=== PATIENT | male | born 1960 | race Caucasian/White ===

== ENCOUNTER 2021-03-10 14:43 | Inpatient (IN) | payer OTHER ==
[~2021-03-10] VITALS: Ht 172.7 cm; Wt 108.6 kg
[~2021-03-10 14:43] MED LIST: ACET325 PO; CIPR500 PO; Flomax0.4 MG PO; HYDACE5325 PO; HYDR1TAB94 PO; KETO30I IM; Percocet 5-3251 EACH PO; Pyridium200 MG PO; RANI150 PO; SULTRIDS PO
[2021-03-10 15:10] LABS: BASOPHILS ABSOLUTE AUTO 0.06 K/mm3 (0.00-0.23); BASOPHILS PERCENT AUTO 1 % (0-2); EOSINOPHILS ABSOLUTE AUTO 0.25 K/mm3 (0.00-0.68); EOSINOPHILS PERCENT AUTO 4 % (0-6); Hematocrit 47.7 % (37.0-53.0); Hemoglobin 16.4 g/dL (13.5-17.5); IMMATURE GRAN ABSOLUTE AUTO 0.04 K/mm3 (0.00-0.10); IMMATURE GRAN PERCENT AUTO 1 % (0-1); LYMPHOCYTES ABSOLUTE AUTO 1.48 K/mm3 (0.84-5.20); LYMPHOCYTES PERCENT AUTO 21 % (21-46); MONOCYTES ABSOLUTE AUTO 0.51 K/mm3 (0.16-1.47); MONOCYTES PERCENT AUTO 7 % (4-13); Mean Corpuscular HGB 31.7 pg (26.0-34.0); Mean Corpuscular HGB Conc 34.4 g/dL (31.5-36.5); Mean Corpuscular Volume 92 fL (80-100); Mean Platelet Volume 10.1 fL (9.1-12.4); NEUTROPHILS ABSOLUTE AUTO 4.79 K/mm3 (1.96-9.15); NEUTROPHILS PERCENT AUTO 67 % (41-73); Platelet Count 223 K/mm3 (150-400); RDW Coefficient Variation 12.2 % (11.7-14.2); RDW Standard Deviation 42.1 fL (35.1-46.3); Red Blood Cell Count 5.17 M/mm3 (4.30-5.90); White Blood Cell Count 7.13 K/mm3 (4.00-11.30)
[2021-03-10 15:41] LABS: Alanine Aminotransfer (ALT/SGP 59 U/L (12-78); Albumin, Blood 4.3 g/dL (3.4-5.0); Alk Phos 68 U/L (50-136); Anion Gap 6 mmol/L (6-16); Aspartate Aminotrans (AST/SGOT 44 U/L (12-37); Bilirubin, Total 0.8 mg/dL (0.1-1.0); Blood Urea Nitrogen 14 mg/dL (8-24); Bun/Creatinine Ratio 12.3 (12.0-20.0); CO2, Blood 26 mmol/L (21-32); Calcium, Blood 9.2 mg/dL (8.5-10.1); Chloride, Blood 104 mmol/L (98-108); Creatinine, Blood 1.14 mg/dL (0.60-1.20); Globulin, Blood 4.1 g/dL (2.2-4.0); Glomerular Filtration Rate >60 (60-); Glucose, Blood 132 mg/dL (70-99); Potassium, Blood 3.5 mmol/L (3.5-5.5); Sodium, Blood 136 mmol/L (136-145); Total Protein, Blood 8.4 g/dL (6.4-8.2)
[2021-03-10 15:43] LABS: Troponin I 0.775 ng/mL (0.000-0.040)
[2021-03-10] MEDS ORDERED: FLOMAX0.4 MG PO (16:18)
[2021-03-10 16:56] LABS: CHOL/HDL RATIO 4.1; Cholesterol 172 mg/dL (50-200); HDL Cholesterol 42 mg/dL (>39); LDL/HDL RATIO 2.1; Low Density Lipoprotein Chol 90 mg/dL (0-110); Triglycerides 202 mg/dL (30-160); Very Low Density Lipoprot Chol 40 mg/dL (6-32)
[2021-03-10] MEDS ORDERED: VITAMIN D31000 UNI1 PO (17:35)
--- NOTE | 2021-03-10 17:41 | NUR ---
Pt arrived to [facility]
[2021-03-10 17:44] LABS: Influenza A, PCR NEGATIVE (NEGATIVE); Influenza B, PCR NEGATIVE (NEGATIVE); Resp Syncytial Virus, PCR NEGATIVE (NEGATIVE); SARS-Cov-2 (COVID-19) PCR, MMC NEGATIVE (NEGATIVE)
[2021-03-10 18:00] LABS: Prothrombin Time Results 10.8 Sec (9.7-11.5)
--- NOTE | 2021-03-10 18:42 | NUR ---
PT ARRIVED TO PCU 3 VIA GURNEY FROM ED. PT IS A/OX3, PLEASANT AND COOPERATIVE WITH CARE, FOLLOWS COMMANDS WELL, STATES HIS CHEST PRESSURE IS DOWN TO A 1/10, LUNGS ARE CLEAR T/O, RESP EVEN AND UNLABORED, NO COUGH NOTED, HRR, TELE IN PLACE RUNNING SB TO SR, SEE STRIP, NO EDEMA NOTED, PPP+1, CAP REFILL <3SEC, VS STABLE, AFEBRILE, IV SITE TO LAC, NEW IV PLACED TO RFA WITH MULTIPLE ATTEMPTS, BTX4, ABD ROUND SEMIFIRM, VOIDS WITHOUT DIFF, SKIN C/W/D, MAEW, CELINE, ORIENTED TO CALL SYSTEM, ROOM LAYOUT, CALL LIGHT IN REACH.
--- NOTE | 2021-03-11 04:37 | NUR ---
SHIFT SUMMARY PT WAS ALERT, ORIENTED, AND COOPERATIVE WITH CARE. INDEPENDENT IN THE ROOM, SUPERVISION WHEN UP FOR LINE MANAGEMENT. PT REPORTED NO CHEST PAIN BUT CHEST TIGHTNESS T/O THE NIGHT THAT WAS UNCHANGED. NO CHEST PAIN WITH AMBULATION TO RESTROOM. TROPONIN ELEVATED TO 11.0. NO RHYTHM CHANGES ON TELE. HR AVG 100'S T/O THE NIGHT. BP 140-130'S, NO PRN ANTIHYPERTENSIVES NEEDED. HEPARIN OFF AT 0500. PT NPO SINCE 2400. PT IS ANXIOUS ABOUT ANGIO TODAY, EDUCATED PT ON EXPECTATIONS. PT HAD AN UNEVENTFUL NIGHT.
[2021-03-11 08:50] LABS: BASOPHILS ABSOLUTE AUTO 0.08 K/mm3 (0.00-0.23); BASOPHILS PERCENT AUTO 1 % (0-2); EOSINOPHILS ABSOLUTE AUTO 0.25 K/mm3 (0.00-0.68); EOSINOPHILS PERCENT AUTO 3 % (0-6); Hematocrit 42.3 % (37.0-53.0); Hemoglobin 14.5 g/dL (13.5-17.5); IMMATURE GRAN ABSOLUTE AUTO 0.03 K/mm3 (0.00-0.10); IMMATURE GRAN PERCENT AUTO 0 % (0-1); LYMPHOCYTES ABSOLUTE AUTO 1.53 K/mm3 (0.84-5.20); LYMPHOCYTES PERCENT AUTO 15 % (21-46); MONOCYTES ABSOLUTE AUTO 0.91 K/mm3 (0.16-1.47); MONOCYTES PERCENT AUTO 9 % (4-13); Mean Corpuscular HGB 31.9 pg (26.0-34.0); Mean Corpuscular HGB Conc 34.3 g/dL (31.5-36.5); Mean Corpuscular Volume 93 fL (80-100); Mean Platelet Volume 10.2 fL (9.1-12.4); NEUTROPHILS ABSOLUTE AUTO 7.22 K/mm3 (1.96-9.15); NEUTROPHILS PERCENT AUTO 72 % (41-73); Platelet Count 188 K/mm3 (150-400); RDW Coefficient Variation 12.3 % (11.7-14.2); RDW Standard Deviation 42.4 fL (35.1-46.3); Red Blood Cell Count 4.54 M/mm3 (4.30-5.90); White Blood Cell Count 10.02 K/mm3 (4.00-11.30)
[2021-03-11 09:14] LABS: Anion Gap 5 mmol/L (6-16); Blood Urea Nitrogen 12 mg/dL (8-24); CO2, Blood 24 mmol/L (21-32); Chloride, Blood 107 mmol/L (98-108); Glomerular Filtration Rate >60 (60-); Glucose, Blood 119 mg/dL (70-99); Potassium, Blood 3.9 mmol/L (3.5-5.5); Sodium, Blood 136 mmol/L (136-145)
--- NOTE | 2021-03-11 11:55 | NUR ---
ASSUMED CARE OF PT AT THIS TIME FOR FEMORAL/TR BAND RECOVERY.
--- NOTE | 2021-03-11 12:03 | NUR ---
PT ARRIVED BACK TO ROOM FROM [facility], REPORT WAS OBTAINED, HE HAS TWO ACCESS SITES, TR BAND IS CLEAR, FEMSTOP TO RIGHT GROIN SITE IS CLEAR AT THIS TIME. V.S. STABLE, PT AWAKE, INSTRUCTING HIM ON RECOVERY AND LAYING FLAT. CALL LIGHT IN REACH. WILL CLOSELY MONITOR.
--- NOTE | 2021-03-11 12:44 | NUR ---
FEMOSTOP PRESSURE REDUCED TO 80MMHG PER DR'S ORDERS. NO BLEEDING OR HEMATOMA NOTED. PT REQUIRES FREQUENT REMINDERS TO STAY FLAT. TR BAND IN PLACE, NO BLEEDING OR HEMATOMA AT THAT SITE WELL.
--- NOTE | 2021-03-11 13:00 | NUR ---
PRESSURE RELEASED ON THE FEMOSTOP TO 60MMHG PER MD ORDERS. NO BLEEDING OR HEMATOMA NOTED. R TR BAND REMAINS IN PLACE, WNL.
--- NOTE | 2021-03-11 13:30 | NUR ---
PRESSURE RELEASED FROM FEMOSTOP TO 40MMHG PER MD ORDERS. NO BLEEDING OR HEMATOMA NOTED, R PEDAL PULSE IS 2+, CAP REFILL LESS THAN 3 SEC. PT STILL NEEDING FREQUENT REMINDERS TO LAY FLAT.
--- NOTE | 2021-03-11 14:00 | NUR ---
2MLS REMOVED FROM R TR BAND, NO BLEEDING NOTED. CAP REFILL LESS THAN 3 SECONDS. PT IS AWARE OF WRIST SITE PRECAUTIONS.
--- NOTE | 2021-03-11 14:15 | NUR ---
2MLS OF AIR REMOVED FROM R TR BAND. NO BLEEDING NOTED. CAP REFILL REMAINS LESS THAN 3 SECONDS.
--- NOTE | 2021-03-11 14:40 | NUR ---
2MLS OF AIR REMOVED FROM R TR BAND. NO BLEEDING NOTED. CAP REFILL REMAINS LESS THAN 3 SECONDS. PT IS AWARE OF R WRIST PRECAUTIONS. ARMBOARD HAS REMAINED IN PLACE SINCE PT ARRIVED FROM THE HEART CENTER.
--- NOTE | 2021-03-11 15:30 | NUR ---
FEMOSTOP REMOVED, NO BLEEDING OR HEMATOMA TO R GROIN SITE. PEDAL PULSES PALP 2+, CAP REFILL LESS THAN 3 SEC. OLD BLOOD CLEANED OFF SITE/AREA AND NEW TEGADERM APPLIED. TR BAND COMPLETELY DEFLATED WITH BAND LEFT IN PLACE FOR ANOTHER HOUR. NO BLEEDING OR HEMATOMA NOTED. PT TOLERATED WELL WITH REMINDERS TO COMPLY WITH FLAT TIME UNTIL 1800 TODAY. PT REPORTS NO CHEST PAIN. CALL LIGHT IN REACH AND FAMILY AT BEDSIDE.
--- NOTE | 2021-03-11 15:51 | NUR ---
PATIENT CARE HANDED OVER TO RAZA RN AT THIS TIME. GROIN SITE AND TR BAND REVIEWED BY BOTH RNs. NO QUESTIONS OR CONCERNS AT THIS TIME.
--- NOTE | 2021-03-11 18:23 | NUR ---
Shift Summary A/Ox4, pleasant and cooperative with care. Courtney assumed care briefly for femoral cath and TR band recovery. Post-op vitals continue. R groin site appears free of hematoma and bleeding post fem cath removal, perfusion good, warm pink toes, pedal pulses palpable, covered with transparent dressing and gauze. R radial site WNL, dressed with bandage. Required lots of reminders to lay flat, uncross legs, and keep still during recovery. Denies chest pain, tightness, shortness of breath. Post-op vitals have been stable so far. TR band off at this time and immobilizer placed. Had dinner.
--- NOTE | 2021-03-12 03:30 | NUR ---
SUMMARY PT HAD NO NOTED ISSUES. ACCESS SITES ARE C/D/I, NO BLEEDING NOTED. PT DENIES CX PAIN OR SOB. PT HAS BEEN RESTING COMFORTABLY T/O SHIFT. PT CURRENTLY SLEEPING IN NO DISTRESS. CALL LIGHT IN REACH.
[2021-03-12 04:06] LABS: BASOPHILS ABSOLUTE AUTO 0.04 K/mm3 (0.00-0.23); BASOPHILS PERCENT AUTO 1 % (0-2); EOSINOPHILS ABSOLUTE AUTO 0.22 K/mm3 (0.00-0.68); EOSINOPHILS PERCENT AUTO 3 % (0-6); IMMATURE GRAN ABSOLUTE AUTO 0.01 K/mm3 (0.00-0.10); IMMATURE GRAN PERCENT AUTO 0 % (0-1); LYMPHOCYTES ABSOLUTE AUTO 1.74 K/mm3 (0.84-5.20); LYMPHOCYTES PERCENT AUTO 23 % (21-46); MONOCYTES ABSOLUTE AUTO 0.87 K/mm3 (0.16-1.47); MONOCYTES PERCENT AUTO 12 % (4-13); Mean Corpuscular HGB 31.8 pg (26.0-34.0); Mean Corpuscular HGB Conc 34.2 g/dL (31.5-36.5); Mean Corpuscular Volume 93 fL (80-100); Mean Platelet Volume 10.6 fL (9.1-12.4); NEUTROPHILS ABSOLUTE AUTO 4.71 K/mm3 (1.96-9.15); NEUTROPHILS PERCENT AUTO 62 % (41-73); Platelet Count 180 K/mm3 (150-400); RDW Coefficient Variation 12.4 % (11.7-14.2); RDW Standard Deviation 42.7 fL (35.1-46.3); Red Blood Cell Count 4.09 M/mm3 (4.30-5.90); White Blood Cell Count 7.59 K/mm3 (4.00-11.30)
[2021-03-12 04:24] LABS: Anion Gap 4 mmol/L (6-16); Blood Urea Nitrogen 10 mg/dL (8-24); Bun/Creatinine Ratio 10.1 (12.0-20.0); CO2, Blood 25 mmol/L (21-32); Calcium, Blood 8.7 mg/dL (8.5-10.1); Chloride, Blood 107 mmol/L (98-108); Glomerular Filtration Rate >60 (60-); Glucose, Blood 109 mg/dL (70-99); Phosphorus, Blood 2.9 mg/dL (2.5-4.9); Potassium, Blood 3.6 mmol/L (3.5-5.5); Sodium, Blood 136 mmol/L (136-145)
--- NOTE | 2021-03-12 06:12 | NUR ---
0605 TELE REPORTED PT HAD SUSTAINED V-TACH 130-140. PT ASSESSED. PT HAD RATE OF 65 PER AUSCULATION AND RADIAL PULSE. PT DENIES ANY CX PAIN/ PRESSURE OR SOB.
--- NOTE | 2021-03-12 13:27 | NUR ---
DR MENDOZA CAME TO SEE THE PT- PLAN IS FOR THE PT TO GO TO THE SENIOR CARE MANAGER TOMORROW.
--- NOTE | 2021-03-12 18:34 | NUR ---
SHIFT SUMMARY- PT ALERT AND ORIENTED, WOULD BE INDEPENDENT IN THE ROOM BUT FOR THE LINES AND TUBES. PT HAS A HEPARIN DRIP RUNNING AT THIS TIME WELL NS AT 150ML/HR. PLAN IS FOR PT TO BE NPO AT MIDNIGHT FOR A TRIP TO THE QUANTOMETER OPERATOR. PT SITTING UP IN BED TALKING ON THE PHONE NO S&S OF DISTRESS NOTED T/O THE DAY. BP WAS A LITTLE LOW ONCE TODAY BUT CAME UP ON EVENING VITALS. PT DENIES ANY SYMPTOMS.
[2021-03-13 04:18] LABS: BASOPHILS ABSOLUTE AUTO 0.04 K/mm3 (0.00-0.23); BASOPHILS PERCENT AUTO 1 % (0-2); EOSINOPHILS ABSOLUTE AUTO 0.32 K/mm3 (0.00-0.68); EOSINOPHILS PERCENT AUTO 5 % (0-6); Hematocrit 36.7 % (37.0-53.0); Hemoglobin 12.6 g/dL (13.5-17.5); IMMATURE GRAN ABSOLUTE AUTO 0.01 K/mm3 (0.00-0.10); IMMATURE GRAN PERCENT AUTO 0 % (0-1); LYMPHOCYTES ABSOLUTE AUTO 1.65 K/mm3 (0.84-5.20); LYMPHOCYTES PERCENT AUTO 27 % (21-46); MONOCYTES ABSOLUTE AUTO 0.65 K/mm3 (0.16-1.47); MONOCYTES PERCENT AUTO 11 % (4-13); Mean Corpuscular HGB 32.1 pg (26.0-34.0); Mean Corpuscular HGB Conc 34.3 g/dL (31.5-36.5); Mean Corpuscular Volume 94 fL (80-100); Mean Platelet Volume 10.9 fL (9.1-12.4); NEUTROPHILS ABSOLUTE AUTO 3.44 K/mm3 (1.96-9.15); NEUTROPHILS PERCENT AUTO 56 % (41-73); Platelet Count 169 K/mm3 (150-400); RDW Coefficient Variation 12.2 % (11.7-14.2); RDW Standard Deviation 42.5 fL (35.1-46.3); Red Blood Cell Count 3.92 M/mm3 (4.30-5.90); White Blood Cell Count 6.11 K/mm3 (4.00-11.30)
[2021-03-13 04:55] LABS: Alanine Aminotransfer (ALT/SGP 31 U/L (12-78); Albumin, Blood 3.3 g/dL (3.4-5.0); Alk Phos 45 U/L (50-136); Anion Gap 3 mmol/L (6-16); Aspartate Aminotrans (AST/SGOT 29 U/L (12-37); Bilirubin, Total 0.6 mg/dL (0.1-1.0); Blood Urea Nitrogen 11 mg/dL (8-24); Bun/Creatinine Ratio 10.6 (12.0-20.0); CO2, Blood 26 mmol/L (21-32); Calcium, Blood 8.7 mg/dL (8.5-10.1); Chloride, Blood 108 mmol/L (98-108); Creatinine, Blood 1.04 mg/dL (0.60-1.20); Globulin, Blood 3.3 g/dL (2.2-4.0); Glomerular Filtration Rate >60 (60-); Glucose, Blood 102 mg/dL (70-99); Potassium, Blood 3.7 mmol/L (3.5-5.5); Sodium, Blood 137 mmol/L (136-145); Total Protein, Blood 6.6 g/dL (6.4-8.2)
--- NOTE | 2021-03-13 05:39 | NUR ---
SHIFT SUMMARY PATIENT IS ALERT AND ORIENTED X4. SBA TO THE BATHROOM. USES URINAL. INDEPENDENT WITH REPOSITIONING IN BED. RIGHT GROIN DRESSING C/D/I, SITE WNL. PATIENT DENIES CP/PRESSURE. 02 SATS 94% ON RA. NPO @2400. VSS, NO ACUTE CHANGES. CALL LIGHT IN REACH.
--- NOTE | 2021-03-13 09:44 | NUR ---
THIS RN AGREES WITH STUDENT NURSE SHIFT ASSESSMENT DOCUMENTATION.
--- NOTE | 2021-03-13 14:25 | NUR ---
At approx 1420 2 ml of air was removed from TR band per orders. site remains stable no s/s of bleeding or hematoma. wrist board remains in place.
--- NOTE | 2021-03-13 18:11 | NUR ---
SHIFT SUMMARY PT IS A/O X4 AND IS COOPERATIVE OF CARE. PT CALLS APPROPIATELY. VSS. O2 SATS >94% ON RA THROUGHOUT SHIFT. ANGIO PERFORMED, 2 STENTS PLACED VIA RT ARTERIAL RADIAL SITE. RT ARTERIAL SITE SITE COVERED W/ TAGEDERM, NO DISCHARGE OR HEMOTOMA NOTED. NO REPORT OF CHEST PAIN/PRESSURE THROUGHOUT SHIFT. PT WAS UP TO TOILET, TOLERATED WELL.
--- NOTE | 2021-03-13 18:21 | NUR ---
THIS RN AGREES WITH STUDENT NURSE SHIFT SUMMARY NOTE.
[2021-03-14 03:50] LABS: BASOPHILS ABSOLUTE AUTO 0.05 K/mm3 (0.00-0.23); BASOPHILS PERCENT AUTO 1 % (0-2); EOSINOPHILS PERCENT AUTO 5 % (0-6); Hematocrit 34.7 % (37.0-53.0); Hemoglobin 11.9 g/dL (13.5-17.5); IMMATURE GRAN ABSOLUTE AUTO 0.02 K/mm3 (0.00-0.10); IMMATURE GRAN PERCENT AUTO 0 % (0-1); LYMPHOCYTES ABSOLUTE AUTO 1.37 K/mm3 (0.84-5.20); LYMPHOCYTES PERCENT AUTO 22 % (21-46); MONOCYTES ABSOLUTE AUTO 0.56 K/mm3 (0.16-1.47); MONOCYTES PERCENT AUTO 9 % (4-13); Mean Corpuscular HGB 31.8 pg (26.0-34.0); Mean Corpuscular HGB Conc 34.3 g/dL (31.5-36.5); Mean Corpuscular Volume 93 fL (80-100); Mean Platelet Volume 10.8 fL (9.1-12.4); NEUTROPHILS ABSOLUTE AUTO 4.03 K/mm3 (1.96-9.15); NEUTROPHILS PERCENT AUTO 64 % (41-73); Platelet Count 165 K/mm3 (150-400); RDW Coefficient Variation 12.3 % (11.7-14.2); RDW Standard Deviation 42.5 fL (35.1-46.3); Red Blood Cell Count 3.74 M/mm3 (4.30-5.90); White Blood Cell Count 6.33 K/mm3 (4.00-11.30)
[2021-03-14 04:14] LABS: Anion Gap 4 mmol/L (6-16); Blood Urea Nitrogen 10 mg/dL (8-24); Bun/Creatinine Ratio 9.7 (12.0-20.0); CO2, Blood 26 mmol/L (21-32); Calcium, Blood 8.5 mg/dL (8.5-10.1); Chloride, Blood 108 mmol/L (98-108); Creatinine, Blood 1.03 mg/dL (0.60-1.20); Glomerular Filtration Rate >60 (60-); Glucose, Blood 105 mg/dL (70-99); Magnesium, Blood 1.8 mg/dL (1.6-2.4); Potassium, Blood 3.6 mmol/L (3.5-5.5); Sodium, Blood 138 mmol/L (136-145)
--- NOTE | 2021-03-14 04:17 | NUR ---
FUNERAL HOME ASSISTANT SUMMARY PT HAS DENIED ANY CP OR PRESSURE THIS SHIFT. PT HAS HAD GOOD URINE OUTPUT THIS SHIFT BUT IS ONLY ABLE TO PRODUCE ABOUT 200ML AT A TIME. OP SITE HAS NO SIGNS OF BLEEDING AND IS PAINLESS PER PT. BP'S HAVE BEEN WNL AND STABLE. NS RUNNING AT 150ML/HR. R GROIN SITE IS SOFT AND PAINLESS PER PT. PT HAS MAINTAINED O2 SATS >92% ON RM AIR THIS SHIFT. VSS, WCTM.
[2021-03-14] MEDS ORDERED: ASPI81CH PO (09:54)
[2021-03-14] MEDS ORDERED: Acetaminophen325 M1 PO (09:54)
[2021-03-14] MEDS ORDERED: ATOR80 PO (09:55)
[2021-03-14] MEDS ORDERED: METO25 PO (09:56)
[2021-03-14] MEDS ORDERED: CLOP75 PO (09:56)
[2021-03-14] MEDS ORDERED: NITR.4SL SL (09:57)
[2021-03-14] MEDS ORDERED: PANT40 PO ×2 (09:57→12:11)
[2021-03-14] MEDS ORDERED: FAMO40 PO (11:40)
--- NOTE | 2021-03-14 12:45 | NUR ---
PT was given verbal and written discharge instructions by nursing service director. Pt denied questions. Was given information regarding plavix and asa and pt was given Plavix contract. Pt was given activity restrictions and verbalzied understanding. IV's were discontinued caths intact. Pt ambulated out. Stable at time of discharge.
== END 2021-03-14 13:12 | disposition home or self-care (01) | DRG 246 ==
LOC: ER 14:43 → PCU 16:36
PROVIDERS: Physician Assistant; ADMIT Family Medicine
PROC: 027136Z Dilation of Coronary Artery, Two Arteries with Three Drug-eluting Intraluminal Devices, Percutaneous Approach (ICD-10-PCS; principal; 2021-03-11)
PROC: 4A023N7 Measurement of Cardiac Sampling and Pressure, Left Heart, Percutaneous Approach (ICD-10-PCS; 2021-03-11)
PROC: B2111ZZ Fluoroscopy of Multiple Coronary Arteries using Low Osmolar Contrast (ICD-10-PCS; 2021-03-11)
PROC: 027135Z Dilation of Coronary Artery, Two Arteries with Two Drug-eluting Intraluminal Devices, Percutaneous Approach (ICD-10-PCS; 2021-03-13)
DX: I21.4 Non-ST elevation (NSTEMI) myocardial infarction (principal); N40.0 Benign prostatic hyperplasia without lower urinary tract symptoms; M19.90 Unspecified osteoarthritis, unspecified site; K21.9 Gastro-esophageal reflux disease without esophagitis; G89.29 Other chronic pain; Z60.2 Problems related to living alone; Z20.822 Contact with and (suspected) exposure to COVID-19; E78.2 Mixed hyperlipidemia; M54.9 Dorsalgia, unspecified; Z96.652 Presence of left artificial knee joint; E66.9 Obesity, unspecified; I16.0 Hypertensive urgency; Z98.890 Other specified postprocedural states; Z87.891 Personal history of nicotine dependence
CPT/HCPCS: 0241U; 36415; 71045; 76937; 80048; 80053; 80061; 83735; 84100; 84443; 84484; 85025; 85347; 85610; 85730; 86850; 86900; 86901; 93005; 93010; 93306; 93458; 94762; 96374; 99152; 99153; 99285-25; A9270; A9270-GY; C1725; C1760; C1769; C1874; C1887; C1894; C9113; C9600; C9601; J1644; J2250; J2370; J3010; J3480; J7030; J7040; J7050; Q9967

== ENCOUNTER 2023-11-30 04:43 | Emergency (ER) | payer OTHER ==
[~2023-11-30] VITALS: Ht 167.6 cm; Wt 95.2 kg
[~2023-11-30 04:43] MED LIST changes: +ASPI81CH PO; +ATOR80 PO; +Acetaminophen325 M1 PO; +CLOP75 PO; +FAMO40 PO; +FLOMAX0.4 MG PO; +METO25 PO; +NITR.4SL SL; +PANT40 PO; +VITAMIN D31000 UNI1 PO
[2023-11-30 06:10] LABS: BASOPHILS ABSOLUTE AUTO 0.06 K/mm3 (0.00-0.23); BASOPHILS PERCENT AUTO 1 % (0-2); EOSINOPHILS ABSOLUTE AUTO 0.37 K/mm3 (0.00-0.68); EOSINOPHILS PERCENT AUTO 4 % (0-6); Hematocrit 41.7 % (37.0-53.0); Hemoglobin 14.4 g/dL (13.5-17.5); IMMATURE GRAN ABSOLUTE AUTO 0.04 K/mm3 (0.00-0.10); IMMATURE GRAN PERCENT AUTO 0 % (0-1); LYMPHOCYTES ABSOLUTE AUTO 1.39 K/mm3 (0.84-5.20); LYMPHOCYTES PERCENT AUTO 15 % (21-46); MONOCYTES ABSOLUTE AUTO 0.85 K/mm3 (0.16-1.47); MONOCYTES PERCENT AUTO 9 % (4-13); Mean Corpuscular HGB 31.6 pg (26.0-34.0); Mean Corpuscular HGB Conc 34.5 g/dL (31.5-36.5); Mean Corpuscular Volume 92 fL (80-100); Mean Platelet Volume 9.5 fL (9.1-12.4); NEUTROPHILS ABSOLUTE AUTO 6.57 K/mm3 (1.96-9.15); NEUTROPHILS PERCENT AUTO 71 % (41-73); Platelet Count 205 K/mm3 (150-400); RDW Coefficient Variation 12.3 % (11.7-14.2); RDW Standard Deviation 41.3 fL (35.1-46.3); Red Blood Cell Count 4.55 M/mm3 (4.30-5.90); White Blood Cell Count 9.28 K/mm3 (4.00-11.30)
[2023-11-30 06:26] LABS: Bun/Creatinine Ratio 21.3 (12.0-20.0); Calcium, Blood 8.8 mg/dL (8.5-10.1); Creatinine, Blood 0.89 mg/dL (0.60-1.20); Potassium, Blood 3.9 mmol/L (3.5-5.5)
[2023-11-30 07:59] LABS: Source, Urine Clean Catch
[2023-11-30 08:00] VITALS: BP 142/76
[2023-11-30 08:12] LABS: Appearance, Urine Clear (Clear); Bilirubin, Urine Neg (Neg); Blood, Urine 3+ (Neg); Color, Urine Yellow (P-Yellow); Glucose Qualitative, Urine Neg (Neg); Ketones, Urine Neg (Neg); Leukocyte Esterase, Urine Neg (Neg); Nitrite, Urine Neg (Neg); Protein, Urine 4+ (Neg); Specific Gravity, Urine 1.025 (1.003-1.022); Urobilinogen, Urine NORM (Normal)
[2023-11-30 08:30] LABS: Mucus Heavy (0-Heavy)
[2023-11-30 08:31] LABS: Amorphous Light (0-Heavy); Red Blood Cells, Urine 0-2 /hpf (0-2); Squamous Epithelial Cells Rare /hpf (Few); White Blood Cells, Urine 0-2 /hpf (0-5)
[2023-11-30 08:32] LABS: Bacteria Rare /hpf
== END 2023-11-30 08:09 | disposition home or self-care (01) ==
LOC: ER 04:43
PROVIDERS: Emergency Medicine; Student in an Organized Health Care Education/Training Program
DX: R10.9 Unspecified abdominal pain (principal); Z79.899 Other long term (current) drug therapy; Z79.82 Long term (current) use of aspirin; Z87.891 Personal history of nicotine dependence; M19.90 Unspecified osteoarthritis, unspecified site
CPT/HCPCS: 71101; 80048; 81001; 84484; 85025; 93005; 93010; A9270

== ENCOUNTER 2023-12-13 16:04 | Inpatient (IN) | payer OTHER ==
[~2023-12-13] VITALS: Ht 167.6 cm; Wt 102.0 kg
[2023-12-13 16:51] LABS: BASOPHILS ABSOLUTE AUTO 0.06 K/mm3 (0.00-0.23); BASOPHILS PERCENT AUTO 1 % (0-2); EOSINOPHILS ABSOLUTE AUTO 0.43 K/mm3 (0.00-0.68); EOSINOPHILS PERCENT AUTO 8 % (0-6); Hematocrit 43.8 % (37.0-53.0); Hemoglobin 14.8 g/dL (13.5-17.5); IMMATURE GRAN ABSOLUTE AUTO 0.02 K/mm3 (0.00-0.10); IMMATURE GRAN PERCENT AUTO 0 % (0-1); LYMPHOCYTES ABSOLUTE AUTO 1.29 K/mm3 (0.84-5.20); LYMPHOCYTES PERCENT AUTO 23 % (21-46); MONOCYTES ABSOLUTE AUTO 0.46 K/mm3 (0.16-1.47); MONOCYTES PERCENT AUTO 8 % (4-13); Mean Corpuscular HGB 31.2 pg (26.0-34.0); Mean Corpuscular HGB Conc 33.8 g/dL (31.5-36.5); Mean Corpuscular Volume 92 fL (80-100); Mean Platelet Volume 8.8 fL (9.1-12.4); NEUTROPHILS ABSOLUTE AUTO 3.29 K/mm3 (1.96-9.15); NEUTROPHILS PERCENT AUTO 59 % (41-73); Platelet Count 231 K/mm3 (150-400); RDW Coefficient Variation 11.9 % (11.7-14.2); Red Blood Cell Count 4.74 M/mm3 (4.30-5.90); White Blood Cell Count 5.55 K/mm3 (4.00-11.30)
[2023-12-13 17:20] LABS: Albumin/Globulin Ratio 0.4 (0.8-1.8); Bilirubin, Total 0.3 mg/dL (0.1-1.0); Bun/Creatinine Ratio 20.8 (12.0-20.0); Calcium, Blood 8.7 mg/dL (8.5-10.1); Creatinine, Blood 0.91 mg/dL (0.60-1.20); Globulin, Blood 4.7 g/dL (2.2-4.0); Total Protein, Blood 6.7 g/dL (6.4-8.2)
[2023-12-13 20:17] VITALS: BP 147/74
[2023-12-14] VITALS (16 sets, daily range): BP systolic 106–169; BP diastolic 59–88
[2023-12-14] MEDS ORDERED: TAMS.4ER PO (00:58)
[2023-12-14] MEDS ORDERED: FINA5 PO (01:01)
--- NOTE | 2023-12-14 06:28 | NUR ---
SHIFT SUMMARY ADMITTED FOR ACUTE APPENDICITIS. AOX4. VSS. DENIES N/V. PASSING FLATUS. LAST BM 12/13 AM. REPORTS LACK OF APPETITE. STATES HE HAS BEEN HAVING CONSTANT 6/10 ACHY PAIN R FLANK RADIATING AROUND SIDE TO RLQ ABD FOR ROUGHLY 1.5 WKS. MEDICATED 2x c TYLENOL FOR PAIN & PT REPORTS RELIEF. DR FULTON IN TO ASSESS PT UPON PTS ARRIVAL TO UNIT RM & ORDERED CT c CONTRAST. PT HAS BEEN NPO SINCE MIDNIGHT EXCEPT SM SIP WATER c MEDS FOR POSSIBLE SURGERY. CALL LIGHT IN REACH, WILL MONITOR.
--- NOTE | 2023-12-14 07:45 | NUR ---
PT TO OR AT APROX 0712
--- NOTE | 2023-12-14 08:53 | NUR ---
12/14/23 0853 Al Berrios PATIENT ON SCHEDULED ANTIBIOTICS
[2023-12-15 03:24] VITALS: BP 150/73
--- NOTE | 2023-12-15 04:48 | NUR ---
SHIFT SUMMARY POD1 LAP APPY. X4 LAP SITES ARE C/D/I. VSS. PT SLEPT ON AND OFF T/O THE NIGHT. PT REMAINED INDEP T/O THE NIGHT, AMBULATING W/O DIFFICULTY. VOIDING W/O DIFFICULTY. PT REPORTS PASSING FLATTUS, NO BM'S. TOLLERATING PO W/O N/V. MEDICATED FOR PAIN ONCE WITH TYLENOL. NO ACUTE EVENTS NOTED OVERNIGHT. PLAN FOR PT TO POSSIBLY D/C TODAY
[2023-12-15] MEDS ORDERED: AMOCLA875 PO (10:16)
[2023-12-15] MEDS ORDERED: VISBIOME 112.51 EACH PO (10:16)
--- NOTE | 2023-12-15 10:30 | NUR ---
DISCHARGE SUMMARY PT A&OX4, VSS/RA, TAMELA PO, VOIDING, AMB INDEPENDENTLY/DRESSED SELF, DENIES PAIN, IV DC'D. DC INS PROVIDED. PT REP UNDERSTANDING THOSE INSTRUCTIONS. LEFT FLOOR WITH ALL PERSONAL POSSESSIONS INCLUDING DC PACKET AND 1 ABX SCRIPT; [facility].
== END 2023-12-15 10:36 | disposition home or self-care (01) | DRG 399 ==
LOC: ER 16:04 → SURS 16:05 → ER 19:42 → SURS 20:11
PROVIDERS: Physician Assistant; Surgery; ADMIT Internal Medicine
PROC: 0DTJ4ZZ Resection of Appendix, Percutaneous Endoscopic Approach (ICD-10-PCS; principal; 2023-12-14 08:00)
DX: K35.33 Acute appendicitis with perforation, localized peritonitis, and gangrene, with abscess (principal); M19.90 Unspecified osteoarthritis, unspecified site; H91.90 Unspecified hearing loss, unspecified ear; K21.9 Gastro-esophageal reflux disease without esophagitis; G89.29 Other chronic pain; M54.9 Dorsalgia, unspecified; Z66 Do not resuscitate; I25.10 Atherosclerotic heart disease of native coronary artery without angina pectoris; E66.9 Obesity, unspecified; E11.9 Type 2 diabetes mellitus without complications; E78.5 Hyperlipidemia, unspecified; H26.9 Unspecified cataract; F32.A Depression, unspecified; Z79.82 Long term (current) use of aspirin; Z79.02 Long term (current) use of antithrombotics/antiplatelets; Z95.5 Presence of coronary angioplasty implant and graft; Z85.46 Personal history of malignant neoplasm of prostate; Z87.891 Personal history of nicotine dependence
CPT/HCPCS: 74177; 80053; 82947; 85025; 88304; 94760; 96374; 96376; 99284-25; A9270; G0378; J0295; J1100; J1815; J1885; J2250; J2405; J2704; J2710; J3010; J7030; Q9967

== ENCOUNTER → 2024-02-16 | Outpatient (CLI) | payer OTHER ==
[~2024-02-16] MED LIST changes: +AMOCLA875 PO; +FINA5 PO; +TAMS.4ER PO; +VISBIOME 112.51 EACH PO
== END | disposition home or self-care (01) ==
LOC: LAB 08:45 → LAB SHORT 08:45
DX: N39.0 Urinary tract infection, site not specified (principal)
CPT/HCPCS: 87086

== ENCOUNTER 2024-06-02 16:31 | Emergency (ER) | payer OTHER ==
[~2024-06-02] VITALS: Ht 167.6 cm; Wt 99.8 kg
[~2024-06-02 16:31] MED LIST changes: +FURO40; +LISI20; +METO25
[2024-06-02 16:43] VITALS: BP 172/90
[2024-06-02] MEDS ORDERED: Benzonatate 100 MG Cap PO ONE (17:20)
[2024-06-02] MEDS ORDERED: BENZ100A PO (18:01)
== END 2024-06-02 18:15 | disposition home or self-care (01) ==
LOC: ER 16:31
DX: J40 Bronchitis, not specified as acute or chronic (principal); J21.9 Acute bronchiolitis, unspecified; Z79.82 Long term (current) use of aspirin; Z79.899 Other long term (current) drug therapy; Z87.891 Personal history of nicotine dependence
CPT/HCPCS: 71046; 99283-25; A9270

== ENCOUNTER 2024-07-21 07:23 | Inpatient (IN) | payer OTHER ==
[~2024-07-21] VITALS: Ht 167.6 cm; Wt 111.0 kg
[2024-07-21] VITALS (9 sets, daily range): BP systolic 129–182; BP diastolic 70–115
[~2024-07-21 07:23] MED LIST changes: +BENZ100A PO; +BUME1 PO; -LISI20; +LISI20 PO; +POTA8 PO
[2024-07-21] MEDS ORDERED: Verapamil HCL 2.5 MG/ML 2ML Injection ONE (14:21)
[2024-07-21] MEDS ORDERED: NS 1,000 ML IV ONE ×2 (14:22→14:26)
[2024-07-21] MEDS ORDERED: NS 250 ML IV ONE (14:22)
[2024-07-21] MEDS ORDERED: Heparin Sodium 1000 Units/ML 10ML MDV ONE (14:22)
[2024-07-21] MEDS ORDERED: Nitroglycerin 2 MG/20 ML BTL ONE (14:22)
[2024-07-21] MEDS ORDERED: FentaNYL Citrate 50 MCG/ML 2 ML Injection ONE ×2 (14:26→16:22)
[2024-07-21] MEDS ORDERED: Midazolam HCl 1MG / ML 2ML Vial ONE ×2 (14:26→14:58)
[2024-07-21] MEDS ORDERED: Clopidogrel Bisulfate 300 MG Cap ONE (16:03)
[2024-07-21] MEDS ORDERED: Aspirin 325 MG Tab ONE (16:05)
--- NOTE | 2024-07-21 18:36 | NUR ---
ORACLE DRM CONSULTANT TO PT ROOM AT ROUGHLY 1745. PT UPDATED BY [employer] CONSULTANT OF PROCEDURE RESULTS AND PLAN OF CARE. PT INSTRUCTED TO REMAIN FLAT FOR ANOTHER 2 HOURS AND NOT TO BEND AT THE WAIST OR USE HIS RIGHT WRIST. AT 1820, THIS RN TO PT ROOM TO ASSESS ACCESS SITES. PT NOT IN BED AT TIME OF THIS RN ENTERING ROOM. PT VISITOR POINTED TO BATHROOM. THIS RN ENTERED TO BATHROOM TO FIND PT SITTING ON TOILET ATTEMPTING TO HAVE A BM. THIS RN INSTRUCTED PT NOT STOP AND NOT STRAIN TO HAVE BM. PT REMINDED THAT HE WAS NOT SUPPOSE TO BEND AT THE WAISTE FOR ANOTHER 2 HOURS. PT STATED "OH I'M SORRY. LET ME WIPE AND I WILL GO BACK TO BED." THIS RN ASSISTED PT BACK TO BED AND NOTIFIED APPLICATION SPEC. SITES STILL WITHOUT BLEEDING. PT INSTRUCTED NOT TO GET UP AGAIN. BED ALARM ON.
--- NOTE | 2024-07-21 19:03 | NUR ---
[place] of care: Pt direct admit from laboratory asst. He arrived to PCU at 1650 from laboratory asst for exteneded recovery. VSS. Stents placed, see laboratory asst procedure notes. R radial and right groin dressing intact. No bleeding, hematoma, or tenderness noted. C/D/I intact. WIll report to night custodian nurse.
[2024-07-21] MEDS ORDERED: Melatonin 5 MG Tablet PO PRN (19:50)
[2024-07-21] MEDS ORDERED: HyDROXyzine HCl 25 MG Tab PO PRN (19:50)
[2024-07-21] MEDS ORDERED: Metoprolol Tartrate 25 MG Tab PO SCH (21:00)
[2024-07-21] MEDS ORDERED: Bumetanide 1 MG Tab PO SCH (21:00)
--- NOTE | 2024-07-21 21:52 | NUR ---
[place] of care- Assumed care of patient at 1900- patient in bed c/o anxiety. Denies CP at this time. R radial and R groin site WNL, CMS intact. Patient's bedrest orders unclear- no documented time of hemostasis. Will go from time of patient arrival to floor- 1650. R radial site with air removal began at 1999- 2cc removed, blood noted at site, 2cc reinserted, will attempt air removal again later. Again, hemostasis of R radial approach not documented. Patient agrees to this plan. CMS of ZHANE WNL. BP elevated upon assumption of care, patient given his PM dose of metoprolol as well as atarax for anxiety. Patient requested a sleep aid, melatonin order obtained from night resident. Patient now resting comfortably and BP much improved.
[2024-07-22 03:11] VITALS: BP 134/77
--- NOTE | 2024-07-22 04:20 | NUR ---
SHIFT SUMMARY- PATIENT R RADIAL AND R GROIN SITE WNL, CMS INTACT. TR BAND REMOVED, NO HEMATOMA PRESENT. PATIENT NO LONGER ON BEDREST, USES THE URINAL ON SIDE OF BED, GOOD URINE OUTPUT. VSS ON RA. NSR ON TELEMETRY, DENIES CHEST PAIN. TOLERATING A HEART HEALTHY DIET. A&OX4 BUT [place]. PLAN IS TO DC HOME TODAY ON PLA[place]. PATIENT STATED PRN ATARAX HELPED HIS ANXIETY LAST NIGHT AND HE SLEPT WELL.
[2024-07-22 04:39] LABS: BASOPHILS ABSOLUTE AUTO 0.05 K/mm3 (0.00-0.23); BASOPHILS PERCENT AUTO 1 % (0-2); EOSINOPHILS ABSOLUTE AUTO 0.37 K/mm3 (0.00-0.68); EOSINOPHILS PERCENT AUTO 5 % (0-6); Hematocrit 37.1 % (37.0-53.0); Hemoglobin 12.9 g/dL (13.5-17.5); IMMATURE GRAN ABSOLUTE AUTO 0.02 K/mm3 (0.00-0.10); IMMATURE GRAN PERCENT AUTO 0 % (0-1); LYMPHOCYTES ABSOLUTE AUTO 1.89 K/mm3 (0.84-5.20); LYMPHOCYTES PERCENT AUTO 23 % (21-46); MONOCYTES ABSOLUTE AUTO 0.66 K/mm3 (0.16-1.47); MONOCYTES PERCENT AUTO 8 % (4-13); Mean Corpuscular HGB 32.2 pg (26.0-34.0); Mean Corpuscular HGB Conc 34.8 g/dL (31.5-36.5); Mean Corpuscular Volume 93 fL (80-100); Mean Platelet Volume 10.1 fL (9.1-12.4); NEUTROPHILS ABSOLUTE AUTO 5.12 K/mm3 (1.96-9.15); NEUTROPHILS PERCENT AUTO 63 % (41-73); Platelet Count 173 K/mm3 (150-400); RDW Coefficient Variation 12.5 % (11.7-14.2); RDW Standard Deviation 42.6 fL (35.1-46.3); Red Blood Cell Count 4.01 M/mm3 (4.30-5.90); White Blood Cell Count 8.11 K/mm3 (4.00-11.30)
[2024-07-22 04:53] LABS: Calcium, Blood 8.9 mg/dL (8.5-10.1); Creatinine, Blood 0.91 mg/dL (0.60-1.20); Potassium, Blood 3.7 mmol/L (3.5-5.5)
[2024-07-22 07:27] VITALS: BP 135/85
[2024-07-22] MEDS ORDERED: ASPI81CH PO (07:47)
[2024-07-22] MEDS ORDERED: VASCEPA1 G1 PO (07:49)
[2024-07-22] MEDS ORDERED: METO50ER PO (07:50)
[2024-07-22] MEDS ORDERED: Clopidogrel Bisulfate 75 MG Tab PO SCH (08:00)
[2024-07-22] MEDS ORDERED: Aspirin 81 MG Chew PO SCH (08:00)
[2024-07-22] MEDS ORDERED: Tamsulosin HCl 0.4 MG Cap PO SCH (09:00)
[2024-07-22] MEDS ORDERED: Atorvastatin 40 MG Tab PO SCH (09:00)
[2024-07-22] MEDS ORDERED: Lisinopril 20 MG Tab PO SCH (09:00)
[2024-07-22] MEDS ORDERED: Enoxaparin 40 MG/0.4 ML SYR SC SCH (09:00)
[2024-07-22] MEDS ORDERED: Finasteride 5 MG Tab PO SCH (09:00)
[2024-07-22] MEDS ORDERED: Potassium Chloride 10 Meq Tablet SA PO SCH (09:00)
--- NOTE | 2024-07-22 09:24 | NUR ---
DISCHARGE UPDATE DISCHARGE PACKET GONE OVER WITH PT AT 0845. PT DISCHARGED AT 0900 VIA WHEELCHAIR AND ON RA. PT DMITRI TO DRESS HIMSELF AND AMBULATE TO AND FROM WHEELCHAIR ON HIS OWN, TOLERATED WELL. DISCHARGE PACKET WITH PT ALONG WITH PERSONAL BELONGINGS AT TIME OF DISCHARGE. RIGHT RADIAL SITE AND RIGHT GROIN SITE C/D/I, NO BLEEDING, HEMATOMA, OR TENDERNESS NOTED.
== END 2024-07-22 09:00 | disposition home or self-care (01) | DRG 322 ==
LOC: MHTC 07:23 → PCU 16:51
PROVIDERS: ADMIT Student in an Organized Health Care Education/Training Program
PROC: 027034Z Dilation of Coronary Artery, One Artery with Drug-eluting Intraluminal Device, Percutaneous Approach (ICD-10-PCS; principal; 2024-07-21)
PROC: 4A023N7 Measurement of Cardiac Sampling and Pressure, Left Heart, Percutaneous Approach (ICD-10-PCS; 2024-07-21)
PROC: B2111ZZ Fluoroscopy of Multiple Coronary Arteries using Low Osmolar Contrast (ICD-10-PCS; 2024-07-21)
DX: I25.10 Atherosclerotic heart disease of native coronary artery without angina pectoris (principal); I50.32 Chronic diastolic (congestive) heart failure; Z68.41 Body mass index [BMI] 40.0-44.9, adult; R06.09 Other forms of dyspnea; I11.0 Hypertensive heart disease with heart failure; E78.5 Hyperlipidemia, unspecified; N40.0 Benign prostatic hyperplasia without lower urinary tract symptoms; E66.01 Morbid (severe) obesity due to excess calories; Z90.49 Acquired absence of other specified parts of digestive tract; Z79.82 Long term (current) use of aspirin; Z95.5 Presence of coronary angioplasty implant and graft; Z79.899 Other long term (current) drug therapy; Z87.891 Personal history of nicotine dependence
CPT/HCPCS: 36415; 76937; 80048; 85025; 93005; 93010; 93460; 99152; 99153; A9270; C1760; C1769; C1874; C1887; C1894; C9600; J1644; J2250; J3010; J7030; J7050; Q9967

== ENCOUNTER 2024-08-17 18:09 | Observation (INO) | payer OTHER ==
[~2024-08-17] VITALS: Ht 167.6 cm; Wt 104.7 kg
[~2024-08-17 18:09] MED LIST changes: +METO25ER PO; +VASCEPA1 G1 PO
[2024-08-17 18:32] LABS: BASOPHILS ABSOLUTE AUTO 0.08 K/mm3 (0.00-0.23); BASOPHILS PERCENT AUTO 1 % (0-2); EOSINOPHILS PERCENT AUTO 4 % (0-6); Hematocrit 37.7 % (37.0-53.0); Hemoglobin 13.8 g/dL (13.5-17.5); IMMATURE GRAN ABSOLUTE AUTO 0.03 K/mm3 (0.00-0.10); IMMATURE GRAN PERCENT AUTO 0 % (0-1); LYMPHOCYTES ABSOLUTE AUTO 1.52 K/mm3 (0.84-5.20); LYMPHOCYTES PERCENT AUTO 19 % (21-46); MONOCYTES ABSOLUTE AUTO 0.56 K/mm3 (0.16-1.47); MONOCYTES PERCENT AUTO 7 % (4-13); Mean Corpuscular HGB 32.1 pg (26.0-34.0); Mean Corpuscular HGB Conc 36.6 g/dL (31.5-36.5); Mean Corpuscular Volume 88 fL (80-100); Mean Platelet Volume 10.8 fL (9.1-12.4); NEUTROPHILS ABSOLUTE AUTO 5.62 K/mm3 (1.96-9.15); NEUTROPHILS PERCENT AUTO 69 % (41-73); Platelet Count 215 K/mm3 (150-400); RDW Coefficient Variation 11.8 % (11.7-14.2); RDW Standard Deviation 37.7 fL (35.1-46.3); White Blood Cell Count 8.11 K/mm3 (4.00-11.30)
[2024-08-17 19:19] LABS: Source, Urine Clean Catch
[2024-08-17 19:24] LABS: Albumin, Blood 2.8 g/dL (3.4-5.0); Albumin/Globulin Ratio 0.7 (0.8-1.8); Bilirubin, Total 0.8 mg/dL (0.1-1.0); Bun/Creatinine Ratio 22.8 (12.0-20.0); Calcium, Blood 8.9 mg/dL (8.5-10.1); Creatinine, Blood 1.58 mg/dL (0.60-1.20); Globulin, Blood 4.1 g/dL (2.2-4.0); Potassium, Blood 4.2 mmol/L (3.5-5.5); Total Protein, Blood 6.9 g/dL (6.4-8.2)
[2024-08-17 19:24] LABS: Appearance, Urine Clear (Clear); Bilirubin, Urine Neg (Neg); Blood, Urine 1+ (Neg); Glucose Qualitative, Urine 4+ (Neg); Ketones, Urine Neg (Neg); Leukocyte Esterase, Urine Neg (Neg); Nitrite, Urine Neg (Neg); Protein, Urine 2+ (Neg); Urobilinogen, Urine NORM (Normal)
[2024-08-17 19:29] LABS: Color, Urine Pale Yellow (P-Yellow)
[2024-08-17 19:30] LABS: Bacteria Rare /hpf; Red Blood Cells, Urine 0-2 /hpf (0-2); Squamous Epithelial Cells Rare /hpf (Few); White Blood Cells, Urine 0-2 /hpf (0-5)
[2024-08-17] MEDS ORDERED: NS 1,000 ML IV ONE ×2 (19:34→21:25)
[2024-08-17] MEDS ORDERED: Insulin Regular 100 Unit/ML 1ML Dose IV ONE (20:05)
[2024-08-17 20:09] LABS: Base Excess Venous -1.1 mmol/L; Bicarbonate Venous 23.9 mmol/L (24.0-30.0); PCO2 Venous 35.9 mmHg (38-42); pH Blood Venous 7.42 (7.34-7.37)
[2024-08-17] MEDS ORDERED: Acetaminophen 325 MG TABLET PO PRN (21:25)
[2024-08-17] MEDS ORDERED: FLU VACC TS2024-25(6MOS UP)/PF 45 MCG/0.5 ML SYRINGE IM SCH (21:25)
[2024-08-17] MEDS ORDERED: NS 1,000 ML IV SCH (21:30)
[2024-08-17] MEDS ORDERED: Ondansetron HCl 2 MG / ML 2ML Vial IV PRN (21:30)
[2024-08-17 22:22] LABS: Glucose, Blood 670 mg/dL (70-99)
[2024-08-17] MEDS ORDERED: Insulin Human Lispro 100 Units/ML 3ML Syringe SC ONE (23:00)
[2024-08-17 23:35] VITALS: BP 119/75
[2024-08-17 23:41] LABS: Glucose, Blood 625 mg/dL (70-99)
[2024-08-18] MEDS ORDERED: Insulin Human Lispro 100 Units/ML 3ML Syringe SC SCH ×2
[2024-08-18] MEDS ORDERED: FENO145 PO (00:03)
[2024-08-18 01:22] LABS: Glucose, Blood 476 mg/dL (70-99)
[2024-08-18] MEDS ORDERED: Insulin Human Lispro 100 Units/ML 3ML Syringe SC ONE (02:00)
[2024-08-18 04:02] VITALS: BP 131/73
[2024-08-18 04:48] LABS: Calcium, Blood 8.2 mg/dL (8.5-10.1); Creatinine, Blood 1.2 mg/dL (0.60-1.20); Potassium, Blood 3.7 mmol/L (3.5-5.5)
--- NOTE | 2024-08-18 06:13 | NUR ---
SHIFT SUMMARY PATIENT ARRIVED TO PCU 19 VIA STRETCHER AT AROUND 2320. HE HAD NO COMPLAINTS OF PAIN OR SHORTNESS OF BREATH. HE IS ALERT AND ORIENTED X4, STAND BY ASSIST WITH AMBULATION. BLOOD GLUCOSE CLOSELY MONITORED WITH INSULIN ADMINISTRATED PER PHYSICIAN AND EMAR. PATIENT ON ROOM AIR WITH SPO2 >90%. VITAL SIGNS STABLE. WILL CONTINUE TO MONITOR. CALL LIGHT WITHIN REACH.
[2024-08-18] MEDS ORDERED: Empagliflozin 10 MG TAB PO SCH (08:00)
[2024-08-18 08:06] VITALS: BP 144/59
[2024-08-18] MEDS ORDERED: Atorvastatin 40 MG Tab PO SCH (09:00)
[2024-08-18] MEDS ORDERED: Aspirin 81 MG Chew PO SCH (09:00)
[2024-08-18] MEDS ORDERED: Tamsulosin HCl 0.4 MG Cap PO SCH (09:00)
[2024-08-18] MEDS ORDERED: Clopidogrel Bisulfate 75 MG Tab PO SCH (09:00)
[2024-08-18] MEDS ORDERED: Finasteride 5 MG Tab PO SCH (09:00)
[2024-08-18] MEDS ORDERED: Metoprolol Tartrate 25 MG Tab PO SCH (09:00)
[2024-08-18] MEDS ORDERED: Heparin Sodium,Porcine 5,000 UNIT/0.5 ML SDV SC SCH (09:00)
[2024-08-18 11:38] VITALS: BP 128/74
--- NOTE | 2024-08-18 15:23 | NUR ---
PT EDUCATED ON HOW TO USE GLUCOMETER, ALL QUESTIONS ANSWERED REGARDING GLUCOMETER USE.
[2024-08-18] MEDS ORDERED: GLIP2.5ER PO (16:26)
[2024-08-18] MEDS ORDERED: METF500 PO (16:27)
[2024-08-18] MEDS ORDERED: GlipiZIDE 5 MG Tab PO SCH (16:30)
[2024-08-18] MEDS ORDERED: MetFORMIN HCl 500 mg PO SCH (17:00)
--- NOTE | 2024-08-18 17:12 | NUR ---
DISCHARGE SUMMARY PT DISCHARGED HOME WITH DISCHARGE INSTRUCTIONS GIVEN VERBALLY AND IN PRINT. BOTH IVS REMOVED AND DRESSED WITH GAUZE AND COBAN. PT LEFT WITH ALL BELONGINGS AND AMBULATED TO DOOR INDEPENDENTLY AND RECEIVED A RIDE HOME FROM A FRIEND.
== END 2024-08-18 17:16 | disposition home or self-care (01) ==
LOC: ER 18:09 → PCU 18:10 → EDBEDREQTM 22:40 → EDBEDREQ 22:40 → PCU 23:26
PROVIDERS: Emergency Medicine; Family Medicine; Nurse Practitioner Acute Care; ADMIT Student in an Organized Health Care Education/Training Program
DX: E11.65 Type 2 diabetes mellitus with hyperglycemia (principal); N17.9 Acute kidney failure, unspecified; E87.1 Hypo-osmolality and hyponatremia; E86.0 Dehydration; N40.0 Benign prostatic hyperplasia without lower urinary tract symptoms; I10 Essential (primary) hypertension; K21.9 Gastro-esophageal reflux disease without esophagitis; E78.5 Hyperlipidemia, unspecified; I25.10 Atherosclerotic heart disease of native coronary artery without angina pectoris; Z87.891 Personal history of nicotine dependence; Z79.01 Long term (current) use of anticoagulants; Z79.82 Long term (current) use of aspirin; Z79.899 Other long term (current) drug therapy
CPT/HCPCS: 36415; 80048; 80053; 81001; 82010; 82803; 82947; 83036; 84484; 85025; 93005; 93010; 96360; 99285-25; A9270; G0378; J1644; J1815; J7030

== ENCOUNTER → 2025-10-06 | Outpatient (CLI) | payer OTHER ==
[~2025-10-06] MED LIST changes: +FENO145 PO; +GLIP2.5ER PO; +METF500 PO
[2025-10-06 13:07] LABS: Protein, Urine Quantitative 67.8 mg/dL (0.0-11.9)
[2025-10-06 13:27] LABS: Microalbumin, Urine Quant. 562.0 mg/L (0.000-20.000)
== END ==
LOC: LAB SHORT 09:30 → LAB 09:30
PROVIDERS: Internal Medicine Nephrology
DX: N18.2 Chronic kidney disease, stage 2 (mild) (principal); D63.1 Anemia in chronic kidney disease; N25.81 Secondary hyperparathyroidism of renal origin; E55.9 Vitamin D deficiency, unspecified; E29.1 Testicular hypofunction
CPT/HCPCS: 81050; 82043; 82570; 84156